=== PATIENT | female | born 1960 | race Caucasian/White ===

== ENCOUNTER 2023-08-02 00:46 | Day surgery (SDC) | payer MEDICARE, SELFPAY ==
--- NOTE | 2023-07-28 15:00 | PM.IMHP ---
H&P: HPI History of Present Illness Date/Time: 07/28/23 15:00 Chief Complaint: urge incontinence Narrative: bothersome urge incontinence with a greater than 50% improvement after a trial of sacral neuromodulation. Presents for full implantation Review of Systems Review of Systems: All systems reviewed & are unremarkable except as noted in HPI and below Exam Narrative: no acute distress normal breathing alert and oriented x3 Assessment and Plan Assessment and plan (1) Urge incontinence: Code(s): N39.41 - Urge incontinence Status: Acute Assessment and Plan: placement of sacral neurostimulator. Understands risks of bleeding, infection, lack of efficacy, need for revision and battery changes. Agrees to proceed
[2023-07-30 15:03] VITALS: BMI 30.2
--- NOTE | 2023-07-30 15:30 | PC.NURSE ---
Report to the Outpatient Waiting Room, entrance under the green pavilion located off [facility], at time __8:30AM on date __08/02/23 . Planned Procedure Time: __10:30AM . Time changes happen often and if your time is changed the preop area will call you the afternoon before. - You and your visitor will be asked to self-screen and do not enter if you have any COVID symptoms. - A mask is optional within the hospital at this time. Patients may have clear liquids (water, carbonated beverages, clear teas, apple juice) until 3 hours prior to surgery with a maximum of 20 ounces. - No food from midnight until time of surgery - Infants may have breast milk until 4 hours before surgery, infant formula 6 hours prior to surgery. - Children will be allowed to drink immediately following surgery. If applicable, please bring a bottle or sippy cup to assist with drinking. Juice, water, soda, and popsicles are readily available. For infants on formula, please bring formula the day of surgery. Pacifiers are allowed. Take the following medications with a SIP of water the morning of surgery: ____NONE DO NOT STOP ANY OF YOUR OTHER PRESCRIPTION MEDICATIONS PRIOR TO SURGERY ?EXCEPT THE FOLLOWING Medications to discontinue per physician ___HOLD MOUNJARA 10 DAYS PRE-OP PER ANESTHESIA Date to take last dose___07/23/23 Please no make-up, nail hungarian, hairspray, perfume, deodorant, or body powder the day of surgery. No jewelry (including any body piercings) or valuables the day of surgery, leave them at home. Please take a shower or bath the night before, or the morning of, surgery with an antibacterial soap. Wear comfortable, loose fitting clothing. Children are encouraged to wear pajamas. - Jewelry must be removed prior to entering the operating room. Rings and piercings that are not removed may be cut off. - The hospital will not accept responsibility for valuables. - Please leave all valuables, including medications, at home the day of surgery. If you are going home after surgery, a licensed cdl team truck driver must drive you home. - NO public transportation without another adult if you receive anesthesia. - We recommend that an adult stay with you for 24 hours following discharge. - We also recommend that you do not drive, make important decision, drink alcoholic beverages, or take any drugs that were not prescribed by your health care provider for at least 24 hours after your discharge time. For Pediatric surgeries, we recommend two adults accompany the child home. Follow any additional instructions given to you from your surgeon. If you or anyone in your household have experienced Covid symptoms in the past week, please notify your surgeon or the nurse liaison at the phone number below for possible testing. Telephone instructions given to ___PATIENT and asked if any additional questions and then verbalized understanding. Patient advised to call surgeon office or pre surgery nurse liaison [phone] if any additional questions.
--- NOTE | ~2023-08-02 | XR_ITS ---
XR fluoroscopy no charge 08/02/2023 10:27 Indication: Neurostimulator lead placement TECHNIQUE: Fluoroscopy used during Neurostimulator lead placement performed by [Thanh morton MD] on 08/02/2023. 55 seconds of fluoroscopy with one fluoroscopic images captured. FINDINGS: Correlate with procedure note. IMPRESSION: Fluoroscopy used during Neurostimulator lead placement. Reviewed, dictated and finalized at location B.
--- NOTE | 2023-08-02 04:45 | WPDHPUPDATE1 ---
History and Physical Update Update Date/Time: 08/02/23 04:45 History and Physical has been reviewed, including an updated exam of the patient. There are NO changes in the patient's condition. Risks, benefits, and alternatives have been discussed and questions answered. Patient agrees to proceed with procedure.
--- NOTE | 2023-08-02 09:04 | P.PNAN_ITS ---
Anes - Initial Pre Proc Eval Procedure: Operation Date: 08/02/23 10:30 Proposed Procedures p Neurostimulator Implant - Thanh Hart MD Date/Time: 08/02/23 09:04 Surgeon: Thanh Hart MD Pre Op Diagnosis: stress incontinence Patient Data Age: 63 Gender: F Height: 1.68 m Weight: 85 kg Allergies Allergy/AdvReac Type Severity Reaction Status Date / Time No Known Allergies Allergy Verified 07/30/23 14:57 Home Medications Medication Instructions Recorded Confirmed Type famotidine 20 mg tablet (Pepcid AC) 20 mg PO DAILY 07/30/23 07/30/23 History finasteride 1 mg tablet 1 mg PO DAILY 07/30/23 07/30/23 History tirzepatide 15 mg/0.5 mL 15 mg subcut WEEKLY 07/30/23 07/30/23 History subcutaneous pen injector (Mounjaro) hydrocodone 5 mg-acetaminophen 325 1 tablet PO Q6H PRN pain #20 tabs 08/02/23 Rx mg tablet Patient hx anesthesia problems: none Family hx anesthesia problems: none Results Review: All pre-operative results and documents have been reviewed as part of the pre- operative evaluation. [facility] Past Medical History Medical History (Updated 08/02/23 @ 09:05 by Ja Samuel MD) Obesity SALVADOR (obstructive sleep apnea) Social History Social History Smoking status: Never smoker Alcohol intake: current Living arrangements: with family Additional living arrangements comments: [facility] Spiritual care concerns: No Anes - Eval Final PreProcedure Day of Procedure 08/02/23 09:04 Patient weight: obese Heart: regular rate and rhythm Lungs: clear to auscultation Airway: Mallampati scale class II Neurological: alert and oriented Last oral intake: >/= 8 hours ASA classification: III Emergent: no Anesthetic plan: proceed Anesthesia type and monitoring: general GIVS and standard monitoring Results Review: All pre-operative results and documents have been reviewed as part of the pre- operative evaluation. Informed Consent: The patient's anesthetic plan and its attendant risks and benefits were discussed with the patient/family/POA. Questions were solicited and answers provided to the satisfaction of the patient/family/POA.
[2023-08-02 09:16] VITALS: BP 139/78; PULSE 69; RESP 14; TEMP 36.6; O2SAT 100
[2023-08-02] MEDS: LACTATED RINGERS 1,000 ML 30 ML IV CONT (09:16)
[2023-08-02] MEDS: ceFAZolin 2 GM/D5W 50 ML 2 GM/50 ML BAG IVPB (09:56)
[2023-08-02] MEDS: ceFAZolin SODIUM 1 GM VIAL (09:58)
[2023-08-02] MEDS: BUPIVACAINE/EPINEPHRINE 0.5% 50 ML VIAL 20 ML INFILTRATE (10:03)
[2023-08-02 10:26] VITALS: BP 111/54; PULSE 63
[2023-08-02 10:55] VITALS: BP 135/73; PULSE 63; O2SAT 100
--- NOTE | 2023-08-02 11:17 | P.OP_ITS ---
Procedure Note - Detailed Date of Procedure 08/02/23 Pre-op Diagnosis urge incontinence Post-op Diagnosis Same Procedure Performed placement of sacral neurostimulator, complex neurostimulator programming and impedance check [id number], [id number] Surgeon Thanh Hart MD Forest Technician none Anesthesia MAC and Local Indications she has urge incontinence. She underwent a successful in office trial of sacral neuromodulation. She is here today placement of permanent device. Understands risks of bleeding, infection, lack of efficacy, need for revision and battery changes. Agrees to proceed Findings uncomplicated device placed Description of Procedure she was correctly identified. Informed consent obtained. She had from the operating room. She was given monitored anesthesia care. She was placed in prone position. Lower back and buttock were prepped and draped sterile fashion. Time-out performed. She was given appropriate perioperative antibiotics I marked out my sacral landmarks in the AP and lateral orientation. I anesthetized skin. I entered the S3 foramen on the patient's right and left. I monitored the needle fluoroscopy. I got most appropriate Lizeth and toe response at low threshold the right S3 placement. I made a skin diogo. I placed a stylet in the later do sheath. I then placed a plate might lead percutaneously. I again stimulated the lead and got appropriate responses at low threshold I marked out the site of pulse generator. I anesthetized the skin. I made a 3 cm incision. I created a subcutaneous pocket to house the pulse generator. I tunneled the lead towards this pocket. The pulse generator was programmed. Appropriate connections were made. It was placed in the pocket. Impedances were checked and found to be normal. I irrigated out all wounds. I assured hemostasis. I closed the subcutaneous tissues with 2-0 Vicryl. I closed the skin with 4-0 Vicryl. Glue was applied. She was awakened transferred to PACU in stable condition Implants neurostimulator implant Estimated Blood Loss 2 Pathology None sent Complications No immediate complications Condition Stable Disposition PACU
[2023-08-02 11:25] VITALS: BP 133/63; PULSE 56; O2SAT 99
== END 2023-08-02 11:45 | disposition home or self-care (01) ==
PROVIDERS: PCP Family Medicine; Visit Provider Urology
PROC: (CPT 64561; principal; 2023-08-02 10:30)
DX: N39.41 Urge incontinence (principal); G47.33 Obstructive sleep apnea (adult) (pediatric); E66.9 Obesity, unspecified; Z68.30 Body mass index [BMI] 30.0-30.9, adult; Z79.85 Long-term (current) use of injectable non-insulin antidiabetic drugs; Z79.891 Long term (current) use of opiate analgesic
CPT/HCPCS: 64561; 64590; 99199; C1767; C1778; C1787; J0690; J2250; J2704; J3010; J7120